=== PATIENT | female | born 1960 | race Hispanic/Latino ===

== ENCOUNTER 2017-04-10 19:39 | Emergency (ER) | payer OTHER ==
[2017-04-10 19:59] VITALS: BP 157/94; RESP 18; O2SAT 99
[2017-04-10] MEDS ORDERED: Heparin 25,000units in D5W 250 ML IV SCH (20:00)
[2017-04-10] MEDS ORDERED: Heparin25000 units/250ml 1/2NS 25,000 UNITS/250 ML BAG IV ONE (20:06)
--- NOTE | 2017-04-10 20:08 | ED PDOC ---
HPI: Chest Pain Time Seen by Provider: 04/10/17 19:51 Chief Complaint (Nursing): Chest Pain Chief Complaint (Provider): Chest Pain History Per: Patient Onset/Duration Of Symptoms: Days (x 3) Current Symptoms Are (Timing): Still Present Additional Complaint(s): Marleny Tapia is a 57 year old female, with a past medical history of rheumatoid arthritis and hypertension, presents to the emergency department with acute mid-sternal chest pain for the past 3 days and shortness of breath intermittently. Denies nausea. PMD: James Past Medical History Reviewed: Historical Data, Nursing Documentation, Vital Signs Vital Signs: Last Vital Signs Temp Pulse 57 L 04/10/17 20:12 Resp 18 04/10/17 19:48 BP 157/94 H 04/10/17 19:48 Pulse Ox 99 04/10/17 20:12 - Medical History PMH: HTN, Rheumatoid Arthritis - Family History Family History: States: Unknown Family Hx - Social History Current smoker - smoking cessation education provided: No - Allergies Allergies/Adverse Reactions: Allergies Allergy/AdvReac Type Severity Reaction Status Date / Time No Known Allergies Allergy Verified 04/10/17 19:51 MARGARET Risk Score for UA/NSTEMI - MARGARET Risk Score Age > 64: NO 3 or more CAD Risk Factors: NO Known CAD (Stenosis greater than 50%): NO Aspirin use in past 7 days: NO Severe Angina: YES EKG ST changes greater than 0.5mm: YES MARGARET Score: 2 Risk %: 8% Physical Exam - Reviewed Nursing Documentation Reviewed: Yes Vital Signs Reviewed: Yes - Physical Exam Appears: Positive for: No Acute Distress Skin: Positive for: Normal Color, Warm, Dry Eye Exam: Positive for: Normal appearance, EOMI, PERRL Cardiovascular/Chest: Positive for: Regular Rate, Rhythm Respiratory: Positive for: Normal Breath Sounds Extremity: Positive for: Normal ROM Neurologic/Psych: Positive for: Alert, 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 Rate: 57 O2 Sat by Pulse Oximetry: 99 (RA) Pulse Ox Interpretation: Normal - Radiology X-Ray: Interpreted by Me X-Ray Interpretation: No Acute Disease - Physician Consult Information Physician Contacted: Josias Lomax Outcome Of Conversation: Recommends ASA, Brilinta 180 mg, Heparin bolus 5000 U and Heparin drip @ 5 U/hr. 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 Lomax. Transfer for cardiac catheterization Time: 19:56 Code Heart called Disposition - Clinical Impression Clinical Impression: STEMI (ST elevation myocardial infarction) - Disposition Disposition Time: 20:00 Condition: CRITICAL Forms: [employer] ([place])
[2017-04-10 20:09] LABS: BASO # 0.1 K/uL (0.0-0.2); BASO % 0.7 % (0.0-2.0); EOS % 0.1 % (0.0-4.0); HEMATOCRIT 35.9 % (34.0-47.0); LYMPH # 1.5 K/uL (1.0-4.3); LYMPH % 10.3 % (20.0-40.0); MEAN CELL VOLUME 105.2 fl (81.0-99.0); MEAN CORPUSCULAR HEMOGLOBIN 33.6 pg (27.0-31.0); MEAN PLATELET VOLUME 8.2 fl (7.2-11.7); MONO # 0.8 K/uL (0.0-0.8); MONO % 5.4 % (0.0-10.0); NEUT # 12.6 K/uL (1.8-7.0); NEUT % 83.5 % (50.0-75.0); NRBC % 0.2 % (0.0-0.0); RED CELL DISTRIBUTION WIDTH 13.5 % (11.5-14.5)
[2017-04-10 20:12] VITALS: PULSE 57
[2017-04-10 20:14] LABS: ALB/GLOB RATIO 1.3 (1.0-2.1); ALKALINE PHOSPHATASE 72 U/L (38-126); ALT/SGPT 38 U/L (9-52); AST/SGOT 27 U/L (14-36); BILIRUBIN,TOTAL 0.3 mg/dl (0.2-1.3); BLOOD UREA NITROGEN 20 mg/dl (7-17); CARBON DIOXIDE 25 mmol/L (22-30); CHLORIDE 106 mmol/L (98-107); GFR AFRICAN-AMERICAN > 60; GLUCOSE,RANDOM 155 mg/dL (65-105); POTASSIUM 3.4 MMOL/L (3.6-5.0); SODIUM 141 mmol/l (132-148); TOTAL PROTEIN 7.5 G/DL (6.3-8.2)
[2017-04-10 20:22] LABS: PARTIAL THROMBOPLASTIN TIME 31.9 Seconds (25.6-37.1)
--- NOTE | 2017-04-11 08:07 | RAD ---
PROCEDURE: CHEST RADIOGRAPH, 1 VIEW HISTORY: CP COMPARISON: None available. FINDINGS: LUNGS: No acute infiltrate bilaterally. PLEURA: No pneumothorax or pleural fluid seen. CARDIOVASCULAR: Cardiac size likely magnified by frontal technique. External pacemaker identified in position. OSSEOUS STRUCTURES: No significant abnormalities. VISUALIZED UPPER ABDOMEN: Normal. OTHER FINDINGS: None. IMPRESSION: No acute cardiopulmonary appreciable.
--- NOTE | 2017-04-12 11:40 | CARD ---
APPROVED REPORT EKG Measurement Heart [id number] <Conclusion> Age and gender specific ECG analysis Normal sinus rhythm ST elevation, 2, 3avf could be ischemia or normal variant
== END 2017-04-10 20:15 | disposition short-term general hospital (02) ==
LOC: H.ER 19:39
DX: I21.3 ST elevation (STEMI) myocardial infarction of unspecified site (principal); I10 Essential (primary) hypertension; M06.9 Rheumatoid arthritis, unspecified
CPT/HCPCS: 71010; 80053; 84484; 85025; 85610; 85730; 96374; 99282; J1644; J2270

== ENCOUNTER 2018-05-29 16:06 | Emergency (ER) | payer OTHER ==
[2018-05-29 16:06] VITALS: BMI 23.3
[2018-05-29 16:13] VITALS: BP 130/84; PULSE 82; RESP 16; TEMP 97.7; O2SAT 97
--- NOTE | 2018-05-29 16:34 | ED PDOC ---
HPI: Back Time Seen by Provider: 05/29/18 16:18 Chief Complaint (Nursing): Back Pain Chief Complaint (Provider): Flank pain History Per: Patient History/Exam Limitations: no limitations Onset/Duration Of Symptoms: Hrs Current Symptoms Are (Timing): Still Present Quality Of Discomfort: "Pain" Additional History Per: Patient Additional Complaint(s): 58yo female with history of CAD, [place], thyroid disease, comes to ER reporting left flank pain, with associated dysuria, hematuria and nausea. Patient was seen by her PMD and was instructed to go to a urologist; patient states she came to the ER as she was not able to "find" a urologist. She report relief of pain with Advil and currently denies any fever, chills, or abdominal pain. No additional complaints. PMD: Brooklynn Chou Past Medical History Reviewed: Historical Data, Nursing Documentation, Vital Signs Vital Signs: Last Vital Signs Temp 97.7 F 05/29/18 16:10 Pulse 82 05/29/18 16:10 Resp 16 05/29/18 16:10 BP 130/84 05/29/18 16:10 Pulse Ox 97 05/29/18 16:10 - Medical History PMH: HTN, Hypothyroidism, Rheumatoid Arthritis - Surgical History Surgical History: No Surg Hx - Family History Family History: States: No Known Family Hx - Social History Current smoker - smoking cessation education provided: No Alcohol: None Drugs: Denies - Home Medications Home Medications: Ambulatory Orders Medication Instructions Recorded Aspirin [Ecotrin] 81 mg PO DAILY #30 tabec 04/12/17 Losartan [Cozaar] 25 mg PO DAILY #30 tab 04/12/17 Metoprolol Tartrate [Lopressor] 25 mg PO BID #60 tab 04/12/17 Rosuvastatin Calcium [Crestor] 10 mg PO HS #30 tab 04/12/17 Ticagrelor [Brilinta] 90 mg PO BID #60 tab 04/12/17 Sulfamethoxazole/Trimethoprim 1 tab PO BID #20 tab 05/29/18 [Bactrim DS 800 mg-160 mg] Tamsulosin [Flomax] 0.4 mg PO DAILY #5 cap 05/29/18 traMADol [Ultram] 50 mg PO Q8 #10 tab 05/29/18 - Allergies Allergies/Adverse Reactions: Allergies Allergy/AdvReac Type Severity Reaction Status Date / Time Iodinated Contrast- Oral and AdvReac RASH Verified 04/11/17 01:57 IV Dye Review of Systems ROS Statement: Except As Marked, All Systems Reviewed And Found Negative Constitutional: Negative for: Fever Gastrointestinal: Positive for: Nausea, Other (left flank pain). Negative for: Vomiting, Abdominal Pain Genitourinary Female: Positive for: Dysuria. Negative for: Frequency, Hematuria Musculoskeletal: Negative for: Back Pain Physical Exam - Reviewed Nursing Documentation Reviewed: Yes Vital Signs Reviewed: Yes - Physical Exam Appears: Positive for: Non-toxic, No Acute Distress Head Exam: Positive for: ATRAUMATIC, NORMAL INSPECTION, NORMOCEPHALIC Skin: Positive for: Normal Color Eye Exam: Positive for: Normal appearance Neck: Positive for: Normal, Supple Cardiovascular/Chest: Positive for: Regular Rate, Rhythm Respiratory: Positive for: Normal Breath Sounds Gastrointestinal/Abdominal: Positive for: Normal Exam, Soft. Negative for: Tenderness Back: Positive for: Normal Inspection. Negative for: L CVA Tenderness, R CVA Tenderness Extremity: Positive for: Normal ROM. Negative for: Pedal Edema Neurologic/Psych: Positive for: Alert, Oriented. Negative for: Motor/Sensory Deficits - Laboratory Results Result Diagrams: 05/29/18 16:42 05/29/18 16:42 - ECG O2 Sat by Pulse Oximetry: 97 (RA) Pulse Ox Interpretation: Normal Medical Decision Making Medical Decision Making: Impression: 58yo female with left flank pain; rule out kidney stone, pyelonephritis, UTI Plan: -- CT Abdomen/Pelvis w/o contrast -- Labs -- Udip 1740 CT Abdomen/Pelvis FINDINGS: There is limited evaluation of the solid organs without the administration of IV contrast. LOWER THORAX: No visible consolidation, pleural effusion, or pneumothorax. Small hiatal hernia/distal esophageal wall thickening. LIVER: Unremarkable unenhanced appearance. GALLBLADDER AND BILE DUCTS: Unremarkable unenhanced appearance. PANCREAS: Unremarkable unenhanced appearance. SPLEEN: Unremarkable unenhanced appearance. ADRENALS: Unremarkable unenhanced appearance. KIDNEYS AND URETERS: 5 mm distal left ureteral calculus (series 3, image 149) with proximal hydroureteronephrosis. No right-sided hydronephrosis or obstructing calculus. BLADDER: The urinary bladder appears unremarkable. REPRODUCTIVE: Uterus is present. APPENDIX: The appendix appears within normal limits of caliber. No secondary signs of acute appendicitis. BOWEL: The stomach is nondistended. Lack of oral contrast limits evaluation for bowel pathology. The bowel loops appear within normal limits of caliber without evidence of intestinal obstruction. Diverticulosis without CT evidence of acute diverticulitis. PERITONEUM: No significant free fluid. No definite free air. LYMPH NODES: No bulky lymphadenopathy identified. VASCULATURE: Atherosclerotic calcifications of the aorta. No aortic aneurysm. BONES: Degenerative changes. OTHER FINDINGS: Small fat containing umbilical hernia. IMPRESSION: 5 mm distal left ureteral calculus with proximal hydroureteronephrosis. Additional findings as above. 1820 Labs reviewed, no clinically significant abnormalities noted. UDip reviewed, patient to be given prescription for Bactrim to treat UTI Patient also prescribed flomax and ultram (as needed for pain). Patient informed to follow up with Dr. Parker (urologist); instructed to return to ER if symptoms worsen or new symptoms arise. Discussed with Dr. Martel, will see pt in office . aware of CT and lab findings Scribe Attestation: Documented by Prisca Infante acting as a scribe for Robert Esquivel MD. Provider Attestation: All medical record entries made by the Scribe were at my direction and personally dictated by me. I have reviewed the chart and agree that the record accurately reflects my personal performance of the history, physical exam, medical decision making, and the department course for this patient. I have also personally directed, reviewed, and agree with the discharge instructions and disposition. Disposition - Clinical Impression Clinical Impression: Kidney stone - Patient ED Disposition Is Patient to be Admitted: No Counseled Patient/Family Regarding: Studies Performed, Diagnosis, Need For Followup, Rx Given - Disposition Referrals: Kristofer Martel MD [Medical Doctor] - Disposition: Routine/Home Disposition Time: 18:14 Condition: FAIR Prescriptions: Sulfamethoxazole/Trimethoprim [Bactrim DS 800 mg-160 mg] 1 tab PO BID #20 tab Tamsulosin [Flomax] 0.4 mg PO DAILY #5 cap traMADol [Ultram] 50 mg PO Q8 #10 tab Instructions: Kidney Stones in Adults Forms: [id number] ([place])
[2018-05-29 16:49] LABS: BASO # 0.1 K/uL (0.0-0.2); BASO % 0.9 % (0.0-2.0); EOS # 0.1 K/uL (0.0-0.7); EOS % 1.1 % (0.0-4.0); HEMOGLOBIN 13.7 g/dL (12.0-16.0); LYMPH # 1.3 K/uL (1.0-4.3); LYMPH % 23.3 % (20.0-40.0); MEAN CELL VOLUME 108.4 fl (81.0-99.0); MEAN CORPUSCULAR HEMOGLOBIN 36.1 pg (27.0-31.0); MEAN CORPUSCULAR HGB CONC 33.3 g/dL (33.0-37.0); MEAN PLATELET VOLUME 7.9 fl (7.2-11.7); MONO # 0.8 K/uL (0.0-0.8); MONO % 14.3 % (0.0-10.0); NEUT # 3.5 K/uL (1.8-7.0); NEUT % 60.4 % (50.0-75.0); NRBC % 0.1 % (0.0-0.0); RBC 3.8 Mil/uL (3.80-5.20); RED CELL DISTRIBUTION WIDTH 13.4 % (11.5-14.5); WHITE BLOOD COUNT 5.7 K/uL (4.8-10.8)
[2018-05-29 17:12] LABS: ALB/GLOB RATIO 1.4 (1.0-2.1); ALBUMIN 3.9 g/dL (3.5-5.0); CALCIUM 9.1 mg/dL (8.4-10.2)
--- NOTE | 2018-05-29 17:35 | CT ---
PROCEDURE: CT Abdomen and Pelvis without Oral or IV contrast. HISTORY: r/o kidney stone COMPARISON: None available. TECHNIQUE: Contiguous axial images of the abdomen and pelvis. No oral or IV contrast administered. Coronal and Sagittal reformats generated and reviewed. Radiation dose: Total exam DLP = 323.2 mGy-cm. This CT exam was performed using one or more of the following dose reduction techniques: Automated exposure control, adjustment of the mA and/or kV according to patient size, and/or use of iterative reconstruction technique. FINDINGS: There is limited evaluation of the solid organs without the administration of IV contrast. LOWER THORAX: No visible consolidation, pleural effusion, or pneumothorax. Small hiatal hernia/distal esophageal wall thickening. LIVER: Unremarkable unenhanced appearance. GALLBLADDER AND BILE DUCTS: Unremarkable unenhanced appearance. PANCREAS: Unremarkable unenhanced appearance. SPLEEN: Unremarkable unenhanced appearance. ADRENALS: Unremarkable unenhanced appearance. KIDNEYS AND URETERS: 5 mm distal left ureteral calculus (series 3, image 149) with proximal hydroureteronephrosis. No right-sided hydronephrosis or obstructing calculus. BLADDER: The urinary bladder appears unremarkable. REPRODUCTIVE: Uterus is present. APPENDIX: The appendix appears within normal limits of caliber. No secondary signs of acute appendicitis. BOWEL: The stomach is nondistended. Lack of oral contrast limits evaluation for bowel pathology. The bowel loops appear within normal limits of caliber without evidence of intestinal obstruction. Diverticulosis without CT evidence of acute diverticulitis. PERITONEUM: No significant free fluid. No definite free air. LYMPH NODES: No bulky lymphadenopathy identified. VASCULATURE: Atherosclerotic calcifications of the aorta. No aortic aneurysm. BONES: Degenerative changes. OTHER FINDINGS: Small fat containing umbilical hernia. IMPRESSION: 5 mm distal left ureteral calculus with proximal hydroureteronephrosis. Additional findings as above.
== END 2018-05-29 19:00 | disposition home or self-care (01) ==
LOC: H.ER 16:06
DX: N20.0 Calculus of kidney (principal); I10 Essential (primary) hypertension; M06.9 Rheumatoid arthritis, unspecified; Z79.82 Long term (current) use of aspirin; Z88.8 Allergy status to other drugs, medicaments and biological substances; E03.9 Hypothyroidism, unspecified